=== PATIENT | male | born 1945 | race Hispanic/Latino ===

== ENCOUNTER 2023-11-13 13:56 | Emergency (ER) | payer SELFPAY ==
[2023-11-13 15:08] LABS: #Basophils 0.08 10x3/uL (0.0-0.2); %Basophils 0.9 % (0.0-1.0); %Eosinophils 1.5 % (0.0-10.0); %Lymphocytes 20.4 % (21.0-51.0); %Monocytes 6.6 % (0.0-10.0); Hematocrit 32.4 % (42.0-52.0); Hemoglobin 10.4 g/dL (14.0-18.0); Mean Corpuscular HGB CONC 32.1 g/dL (32.0-36.0); Mean Corpuscular Hemoglobin 25.9 pg (27.0-31.0); Mean Corpuscular Volume 80.8 fL (78.0-98.0); Mean Platelet Volume 10.1 fL (7.4-10.4); Platelet Count 409 10x3/uL (130-400); RBC Distribution Width 14.4 % (11.5-14.5); Red Blood Cell (RBC) Count 4.01 mill/uL (4.70-6.10)
[2023-11-13 15:25] LABS: ALT (SGPT) 29 U/L (8-55); AST (SGOT) 19 U/L (5-34); Albumin 3.1 g/dL (3.4-4.8); Alkaline Phosphatase 100 U/L (40-110); Anion Gap 12 mmol/L (10-20); BUN (Urea Nitrogen) 21 mg/dL (8.4-25.7); Bilirubin, Total 0.2 mg/dL (0.2-1.2); Calc. Creatinine Clearance 0 mL/min (70-130); Carbon Dioxide 26 mmol/L (23-31); Chloride 106 mmol/L (98-107); Estimated GFR 75; Globulin 4.3 g/dL (2.4-3.5); Glucose 123 mg/dL (83-110); Lipase 79 U/L (8-78); Magnesium 2.4 mg/dL (1.6-2.6); Potassium 4.6 mmol/L (3.5-5.1); Protein, Total 7.4 g/dL (5.8-8.1); Sodium 139 mmol/L (136-145)
[2023-11-13 15:29] LABS: Troponin I Less than 0.010 ng/mL (< 0.028)
[2023-11-13 17:11] LABS: Bacteria/HPF None Seen HPF (None Seen); Bilirubin Negative (Negative); Blood, Urine Negative (Negative); CAUTI Indications for Culture Pelvic or flank pain; Clarity Clear (Clear); Glucose, Urine (Dipstick) Normal (Negative); Ketone, Urine Negative (Negative); Leukocyte Negative Leu/uL (Negative); Nitrite Negative (Negative); Protein, Urine (Dipstick) Negative (Neg-Trace); RBC/HPF 0-3 HPF (0-3); Specific Gravity, Urine 1.012 (1.002-1.036); Squamous Epithelial 0-3 HPF (0-3); Urobilinogen Normal mg/dL (Less than 2); WBC/HPF 0-3 HPF (0-3)
[2023-11-13 17:16] LABS: Urine Culture Reflex No No
== END 2023-11-13 21:47 | disposition home or self-care (01) ==
LOC: ERS 13:56
DX: I71.00 Dissection of unspecified site of aorta (principal); R07.9 Chest pain, unspecified; K63.89 Other specified diseases of intestine; R10.9 Unspecified abdominal pain; Z87.891 Personal history of nicotine dependence
CPT/HCPCS: 36415; 71045; 71275; 74174; 80053; 81001; 83690; 83735; 83880; 84484; 85025; 93005

== ENCOUNTER 2024-01-27 21:21 | Inpatient (IN) | payer SELFPAY ==
[2024-01-27 21:54] LABS: #Basophils 0.07 10x3/uL (0.0-0.2); %Basophils 1.1 % (0.0-1.0); %Eosinophils 2.4 % (0.0-10.0); %Lymphocytes 33.4 % (21.0-51.0); %Monocytes 9.7 % (0.0-10.0); %Neutrophils 52.5 % (42.0-75.0); Hematocrit 34.2 % (42.0-52.0); Hemoglobin 10.6 g/dL (14.0-18.0); Mean Corpuscular Volume 77.6 fL (78.0-98.0); Mean Platelet Volume 10.8 fL (7.4-10.4); Platelet Count 209 10x3/uL (130-400); RBC Distribution Width 15.9 % (11.5-14.5); Red Blood Cell (RBC) Count 4.41 mill/uL (4.70-6.10)
[2024-01-27 22:10] LABS: ALT (SGPT) 10 U/L (8-55); AST (SGOT) 16 U/L (5-34); Albumin 3.7 g/dL (3.4-4.8); Alkaline Phosphatase 73 U/L (40-110); Anion Gap 10 mmol/L (10-20); BUN (Urea Nitrogen) 20 mg/dL (8.4-25.7); Bilirubin, Total 0.2 mg/dL (0.2-1.2); Calc. Creatinine Clearance 0 mL/min (70-130); Calcium 8.7 mg/dL (7.8-10.44); Carbon Dioxide 26 mmol/L (23-31); Chloride 108 mmol/L (98-107); Estimated GFR 46; Globulin 3.2 g/dL (2.4-3.5); Glucose 93 mg/dL (83-110); Potassium 3.9 mmol/L (3.5-5.1); Protein, Total 6.9 g/dL (5.8-8.1); Sodium 140 mmol/L (136-145)
[2024-01-27 22:21] LABS: Troponin I 0.263 ng/mL (< 0.028)
[2024-01-27] MEDS ORDERED: Aspirin Chewable 81 MG TAB ONE (22:56)
[2024-01-27] MEDS ORDERED: Enoxaparin 100 MG (1 mL) SYRINGE ONE (22:57)
[2024-01-27] MEDS ORDERED: Ondansetron ODT 4 MG TAB SL PRN (23:15)
[2024-01-27] MEDS ORDERED: Ondansetron PF 4 MG/2 ML Vial IVP PRN (23:15)
[2024-01-28] MEDS ORDERED: Acetaminophen 325 MG TAB PO PRN (00:51)
[2024-01-28] MEDS ORDERED: Senokot S 8.6-50 MG TAB PO PRN (00:51)
[2024-01-28] MEDS ORDERED: Ondansetron PF 4 MG/2 ML Vial IVP PRN (00:51)
[2024-01-28] MEDS ORDERED: Calcium Carbonate 500 MG ChewTAB PO PRN (00:51)
[2024-01-28 01:15] VITALS: BMI 31.7
[2024-01-28] MEDS: Nitroglycerin 2% Ointment 1 INCH/1 GM Packet TOP SCH ×2 (01:50→21:16)
[2024-01-28 02:06] LABS: Troponin I 0.242 ng/mL (< 0.028)
[2024-01-28 04:53] LABS: #Basophils 0.07 10x3/uL (0.0-0.2); %Basophils 1.4 % (0.0-1.0); %Eosinophils 2.5 % (0.0-10.0); %Lymphocytes 39.3 % (21.0-51.0); %Monocytes 8.8 % (0.0-10.0); %Neutrophils 47.6 % (42.0-75.0); Hematocrit 30.5 % (42.0-52.0); Hemoglobin 9.4 g/dL (14.0-18.0); Mean Corpuscular HGB CONC 30.8 g/dL (32.0-36.0); Mean Corpuscular Hemoglobin 23.7 pg (27.0-31.0); Mean Platelet Volume 11.3 fL (7.4-10.4); Platelet Count 181 10x3/uL (130-400); RBC Distribution Width 15.8 % (11.5-14.5); Red Blood Cell (RBC) Count 3.96 mill/uL (4.70-6.10)
[2024-01-28 05:10] LABS: Hemoglobin A1c 5.4 % (4.0-6.0)
[2024-01-28 05:26] LABS: ALT (SGPT) 17 U/L (8-55); AST (SGOT) 14 U/L (5-34); Albumin 3.4 g/dL (3.4-4.8); Alkaline Phosphatase 67 U/L (40-110); Anion Gap 12 mmol/L (10-20); BUN (Urea Nitrogen) 23 mg/dL (8.4-25.7); Calc. Creatinine Clearance 77 mL/min (70-130); Calcium 8.1 mg/dL (7.8-10.44); Carbon Dioxide 22 mmol/L (23-31); Chloride 107 mmol/L (98-107); Cholesterol 179 mg/dl (< 200 Desired); Estimated GFR 70; Globulin 2.7 g/dL (2.4-3.5); Glucose 90 mg/dL (83-110); HDL Cholesterol 30 mg/dL (>60 Neg Risk); LDL Cholesterol, Calculated 112 mg/dL; Magnesium 2.1 mg/dL (1.6-2.6); Potassium 3.8 mmol/L (3.5-5.1); Protein, Total 6.1 g/dL (5.8-8.1); Sodium 137 mmol/L (136-145); Triglycerides 185 mg/dL (Less than 150)
[2024-01-28 07:31] LABS: Bilirubin, Total 0.2 mg/dL (0.2-1.2)
[2024-01-28] MEDS ORDERED: Aspirin 325 MG TAB PO SCH (08:00)
[2024-01-28] MEDS: Pantoprazole DR 40 MG TAB PO SCH (09:27)
[2024-01-28] MEDS: Enoxaparin 100 MG (1 mL) SYRINGE SC SCH (09:27)
[2024-01-28] MEDS: Aspirin Chewable 81 MG TAB PO SCH (09:27)
[2024-01-28] MEDS ORDERED: Iopamidol 370 76% 100 ML VIAL ONE (10:13)
[2024-01-28] MEDS: FLU (Fluad Triv) TS24-25 (65UP)/MF59C/PF 45 MCG/0.5 ML Syringe IM ONE (11:04)
[2024-01-28] MEDS ORDERED: Nitroglycerin 0.4 MG TAB (25 Tab Bottle) SL PRN (21:07)
[2024-01-28] MEDS: Atorvastatin Calcium 40 MG TAB PO SCH (21:42)
[2024-01-28 21:52] LABS: Magnesium 2.2 mg/dL (1.6-2.6)
[2024-01-28 22:09] LABS: Troponin I 0.336 ng/mL (< 0.028)
[2024-01-29 19:25] VITALS: BP 168/68; TEMP 98.3
== END 2024-01-30 00:45 | disposition short-term general hospital (02) | DRG 299 ==
LOC: ERS 21:21 → OBS 23:01
PROVIDERS: ADMIT Internal Medicine; ATTEND Internal Medicine
DX: I70.0 Atherosclerosis of aorta (principal); I71.02 Dissection of abdominal aorta; C18.9 Malignant neoplasm of colon, unspecified; N17.9 Acute kidney failure, unspecified; K63.3 Ulcer of intestine; D63.8 Anemia in other chronic diseases classified elsewhere; I73.9 Peripheral vascular disease, unspecified; I48.0 Paroxysmal atrial fibrillation; F10.90 Alcohol use, unspecified, uncomplicated; Z87.891 Personal history of nicotine dependence; Z91.148 Patient's other noncompliance with medication regimen for other reason
CPT/HCPCS: 36415; 71045; 71275; 74174; 80053; 80061; 83036; 83735; 84484; 85025; 85379; 93005; 93010; 93306; 94760; J1650; Q9967